=== PATIENT | male | born 2000 | race Caucasian/White ===

== ENCOUNTER 2025-01-16 10:51 | Outpatient (REF) | payer OTHER, SELFPAY ==
[2025-01-16 15:22] LABS: Alanine Aminotransferase 75 U/L (0-40); Albumin Level 4.8 g/dL (3.5-5.0); Alkaline Phosphatase 68 U/L (39-117); Anion Gap 10 (12-20); Aspartate Amino Transferase 37 U/L (5-37); Blood Urea Nitrogen 15 mg/dL (9-16); Calcium 9.2 mg/dL (8.4-10.2); Carbon Dioxide 26 mmol/L (22-29); Chloride 108 mmol/L (96-108); Cholesterol 157 mg/dL (<200); Estimated Glomerular Filt Rate > 60; HDL Cholesterol 46 mg/dL (>40); Potassium 3.9 mmol/L (3.3-5.1); Sodium 140 mmol/L (135-145); Total Protein 7.5 g/dL (6.5-8.0); Triglycerides 82 mg/dL (<150)
[2025-01-16 15:35] LABS: Folate 11.2 ng/mL (> or = 4.0); Vitamin B12 536 pg/mL (200-900)
[2025-01-16 15:43] LABS: Microalbum/Creatinine Ratio Ur 12.0 ug/mg cr (<30)
== END 2025-01-16 10:52 | disposition home or self-care (01) ==
LOC: HO.WFDLDS 10:51
PROVIDERS: PCP Nurse Practitioner Family; Visit Provider Nurse Practitioner Family
DX: Z00.00 Encounter for general adult medical examination without abnormal findings (principal); E66.01 Morbid (severe) obesity due to excess calories; J45.20 Mild intermittent asthma, uncomplicated; Z23 Encounter for immunization; Z83.3 Family history of diabetes mellitus; Z81.3 Family history of other psychoactive substance abuse and dependence; Z68.42 Body mass index [BMI] 45.0-49.9, adult; Z76.89 Persons encountering health services in other specified circumstances; Z79.899 Other long term (current) drug therapy
CPT/HCPCS: 36415; 80053; 80061; 82043; 82306; 82570; 82607; 82746; 83036; 84443; 90471; 90715; 96127

== ENCOUNTER 2025-01-16 10:51 | Outpatient (AMB) | payer OTHER, SELFPAY ==
--- NOTE | 2025-01-16 10:52 | A.OFFPC_ITS ---
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 Required: No Allergies No Known Allergies Allergy (Verified 01/16/25 11:18) Medication List - Last Reconciled 01/16/25 by MARCELINA Galarza No Known Home Meds Tobacco use date assessed: 01/16/25 Dental Screening Dental Screen Date: 01/16/25 Did you have a dental visit in the last 12 months?: Yes Did you have a dental problem in the last 6 months where you did not have access to dental care?: No Was dental information given to patient?: Patient has dentist HPI HPI Comments History of Present Illness Details 24 y/o M with obesity, asthma, allergies 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 no records Asthma: - The patient has a history of asthma si nce childhood. - In the past, the patient used a nebuli zer for treatment but is not currently on any inhalers. - The patient requests to be put back on medication to help with chest congestion. - The patient also reports symptoms sugg estive of seasonal allergies, such as sneezing, and believes the symptoms are a mix of asthma and allergies. - The patient has tried Claritin for all ergies without relief. Obesity: - The patient has a history of obesity w ith a current BMI of 46.3. - The patient notes that the whole famil y is large in stature. Past Medical History - Asthma since childhood. - Obesity with a BMI of 46.3. Past Surgical History - No history of surgery reported. Family History - Mother: Has thyroid issues and is a re covering drug addict. - Father: Has diabetes. - Brother: Has only one kidney since . - Sister: Has a history of an unspecifie d cancer and was a drug addict. Social History - The patient lives with their and is expecting their first daughter. 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 Health Maintenance - The patient requested and will receive a Tdap (tetanus) shot today in preparation for the of their daughter. - The patient declined a flu shot. - The patient agreed to baseline screeni ng labs, including for diabetes. Review of Systems - Respiratory: Reports feeling of conges tion in the chest. - HEENT: Reports sneezing, possibly rela davin to seasonal allergies. - Genitourinary: Reports normal urinatio n. - Musculoskeletal: Denies swelling in th e legs. Physical Exam General: Well developed, well nourished, in no acute distress. Appears stated age. Head: Normocephalic, atraumatic. Eyes: Pupils are equal, round and reactive to light and accommodation. Conjunctivae are clear. Scleras nonicteric bilat. Vision grossly normal. Ears: TMs clear AU, EACS WNL Nose: Patent, without discharge. Neck: No carotid bruit bilat. Supple, no adenopathy or thyromegaly. Breast: Edu on SBE Lungs: Clear to auscultation bilaterally. No rales, rhonchi or wheeze noted. Good air flow in all hamm. Heart: Regular rate and rhythm. No murmurs, click, rubs or gallops are noted. Abdomen: Bowel sounds present in all quadrants. The abdomen is soft, nontender, with no masses or organomegaly noted. No hernias are noted. : Deferred. Reviewed DIANA & recommendations Pulses: Peripheral pulses are equal and palpable bilaterally. Extremities: No clubbing, cyanosis nor edema is noted. Neurologic: Gait and station normal. Cranial Nerves 2-12 intact. Motor strength grossly symmetrical and intact. No sensory loss. Balance normal. Skin: No rashes, ulcers, or lesions noted. Turgor is good. Skin color is good. Hair and nails are without abnormalities. Psych: Normal eye contact, affect and mood appropriate, and normal interactions. Patient is alert and appropriate to context. Results - Baseline screening labs were ordered; results are pending. Medical Decision Making The patient is a 24-year-old individual presenting for a new patient visit to [facility] care. The primary concerns addressed were asthma and obesity, alongside routine health maintenance. For the patient's asthma, which has been present since childhood and is currently untreated, a two-part inhaler regimen was initiated. An albuterol inhaler was prescribed for acute symptom relief, and a daily maintenance inhaler, fluticasone, was started to control underlying inflammation, which may also address a potential allergic component. Given the patient's obesity (BMI 46.3) and a family history of diabetes, baseline screening labs were deemed appropriate to assess for metabolic conditions. In terms of preventative care, a Tdap vaccine was administered due to the upcoming of the patient's child, while the patient declined the influenza vaccine. The plan includes reviewing lab results, monitoring response to asthma treatment, and scheduling follow-up visits as needed, with a recommendation for an annual check-up. Plan 1. Asthma - Prescribed albuterol as a rescue inhal er for as-needed use, particularly before activities that may trigger symptoms. - Prescribed fluticasone inhaler, one in halation once daily, as a daily controller medication. - Instructed the patient to rinse their mouth after using the fluticasone inhaler to prevent bacterial buildup. - Advised the patient to send a message via the patient portal if breathing symptoms do not improve with the prescribed regimen. 2. Obesity And Health Maintenance - Ordered baseline screening labs to scr een for conditions such as diabetes, given the patient's BMI of 46.3 and family history. - Administered a Tdap vaccine today in a nticipation of the of the patient's daughter. - Patient declined the influenza vaccine . - Recommended annual follow-up, or as ne eded. - Instructed the patient on how to sign up for and use the [employer] patient portal for communication and accessing lab results. Patient Instructions - Take the fluticasone inhaler with one puff once a day, every day. - Be sure to rinse your mouth with water after using the fluticasone inhaler. - Use the albuterol inhaler as a rescue inhaler when you are having a hard time breathing. - You will receive a Tdap shot today. Yo ur arm may be sore for a few days, like a punch in the arm. - Please have your blood drawn at the la b here in the office before you leave today. - You will get an email to sign up for o [facility] patient portal. Please click the link in the email within 24 hours to create your account. - Use the message feature in the [facility] to contact the office with any questions or to request an appointment. Do not use the phones, as they go to a call center. - If your breathing problems do not get better with the new inhalers, please send us a message through the marlee. - It is recommended that you follow up o nce a year for a check-up, or sooner if needed. Consent The patient verbally consented to receiving the Tdap vaccination after being informed that soreness at the injection site is a common side effect. The patient also verbally agreed to undergo screening lab tests to establish a baseline for their health. Patient was informed and verbally consented to the use of an ambient scribe for clinic note documentation during this visit. An additional 15 minutes was spent addressing the problem(s) noted at todays visit. This includes time spent before the visit reviewing the chart, time spent during the visit, and time spent after the visit on documentation reviewing laboratory results, diagnostic imaging, medications, performing a medically necessary evaluation, counseling on diagnoses, care coordination, ordering appropriate tests, ordering appropriate medications, review of tests performed by other providers, reporting test results with the patient, communication with other healthcare providers. 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 1. Little interest or pleasure in doing things: not at all 2. Feeling down, depressed, or hopeless: not at all 3. Trouble falling or staying asleep, or sleeping too much: not at all 4. Feeling tired or having little energy: not at all 5. Poor appetite or overeating: not at all 6. Feeling bad about yourself - or that you are a failure or have let yourself or your family down: not at all 7. Trouble concentrating on things, such as reading the newspaper or watching television: not at all 8. Moving or speaking so slowly that other people could have noticed. Or the opposite - being so fidgety or restless that you have been moving around a lot more than usual: not at all 9. Thoughts that you would be better off or of hurting yourself in some way: not at all Total score: 0 Depression Screening Interpretation: Negative Depression Screening Done: Yes 54741 - PHQ-9 Billing: Yes Source: Developed by Drs. Miguel Lewis, Jacy Alejo, Jayson Shirley and colleagues, with an educational joan from [employer]. Thrive Questionnaire Date Thrive assessed: 01/16/25 I am a: Patient What is your living situation today?: I have a steady place to live Within the past 12 months, did the food you bought not last and you didn't have the money to get more?: I choose not to answer this question Within the past 12 months, did you worry whether your food would run out before you got money to buy more?: Never true Do you have trouble paying for medicines?: No Do you have trouble getting transportation to medical appointments?: No Do you have trouble paying your heating and electricity bill?: No Do you have trouble taking care of your child, family member or friend?: No Do you have trouble with day-to-day activities such as bathing, preparing meals, shopping, managing finances, etc.?: No Are you currently unemployed and looking for a job?: No Are you interested in more education?: No Please select the resources that you would like help with: None Currently or been in a relationship where the following occur: I choose not to answer THRIVE Score: 0 AUDIT C Alcohol Use Questionnaire (AUDIT-C) 1. How often do you have a drink containing alcohol?: Never 3. How often do you have six or more drinks on one occasion?: Never Total Score: 0 Score Reviewed/Action Taken: Yes JACQUE-7 AMB Questionnaire JACQUE-7 Date JACQUE - 7 assessed: 01/16/25 Feeling nervous, anxious, or on edge: 0 = Not at all Not being able to stop or control worryin = Not at all Worrying too much about different things: 0 = Not at all Trouble relaxin = Not at all Being so restless that it is hard to sit still: 0 = Not at all Becoming easily annoyed or irritable: 0 = Not at all Feeling afraid as if something awful might happen: 0 = Not at all Total JACQUE-7 score (0-4 normal; 5-9 mild; 10-14 moderate; 15-21 severe): 0 Source: Developed by Drs. Miguel Lewis, Jacy Alejo, Jayson Shirley and colleagues, with an educational joan from [employer]. JACQUE-7 Assessment Billing JACQUE-7 Assessment Tool: JACQUE-7 Assessment 31573 Physical exam (Primary Care) Vital Signs: Last Vital Signs Temp 97.2 F 01/16/25 10:57 Pulse 93 01/16/25 10:57 Resp 13 01/16/25 10:57 BP 132/72 01/16/25 10:57 Pulse Ox 97 01/16/25 10:57 Oxygen Delivery Method Room Air 01/16/25 10:57 BMI result Body Mass Index 46.3 BMI Assessment/Plan discussion: High BMI High, discussed plan: lifestyle Tobacco/Smoking Status: Tobacco use Status Tobacco use date assessed 01/16/25 01/16/25 10:59 Patient Tobacco Use Status Never used Tobacco 01/16/25 11:02 e-Cigarette/Vaping Use Never Used 01/16/25 11:02 PHQ-9: PHQ-9 Score PHQ-9: Total score 0 01/16/25 11:18 Depression Screening Interpretation: Negative Thrive Assessment: Date of Thrive Assessment Date Thrive assessed 01/16/25 01/16/25 10:59 Currently or been in a relationship where the following occur: I choose not to answer Immunizations Boostrix Tdap 2.5 Lf unit-8 mcg-5 Lf/0.5 mL intramuscular syringe Performing Provider: ERIC Galarza Performing Location: [facility] Family Medicine Administered by: Deny Silva MA on 01/16/25 11:35 Dose Route Admin Location Dispensed Lot Number Expiration Date NDC English Lecturer 0.5 mL IM Left Deltoid 0.5 mL [id number] 01/18/27 91954-505-72 [employer] Total Dispensed Waste 0.5 mL 0 % VIS Given Date VIS Provided VIS Publication Date 01/16/25 Single Vaccine 20 Eligibility Eligibility Date Funding Source Not [facility] Eligible 01/16/25 Private Coding Level of Care Code New Pt Level 2 (13335) New Pt Prev Care 18-39yr(63021 Diagnoses Encounter to establish care with new provider Z76.89 Obesity, morbid, BMI 40.0-49.9 E66.01 Laboratory exam ordered as part of routine general medical examination Z00.00 Mild intermittent asthma in adult without complication J45.20 Need for Tdap vaccination Z23 Influenza vaccination declined Z28.21 Family history of diabetes mellitus Z83.3 Family history of drug addiction Z81.3 Adult general medical exam Z00.00 Additional Codes JACQUE-7 Assessment Billing - JACQUE-7 Assessment Tool: JACQUE-7 Assessment 66408 ([id number]) PHQ-9 - 09938 - PHQ-9 Billing: Yes ([id number]) Assessment & Plan Assessment & Plan (1) Encounter to establish care with new provider: Code(s): Z76.89 - Persons encountering health services in other specified circumstances (2) Obesity, morbid, BMI 40.0-49.9: Code(s): E66.01 - Morbid (severe) obesity due to excess calories Category: Medical (3) Laboratory exam ordered as part of routine general medical examination: Code(s): Z00.00 - Encounter for general adult medical examination without abnormal findings Category: Medical (4) Mild intermittent asthma in adult without complication: Code(s): J45.20 - Mild intermittent asthma, uncomplicated Category: Medical (5) Need for Tdap vaccination: Onset Date: ~01/16/25 Code(s): Z23 - Encounter for immunization Category: Medical (6) Influenza vaccination declined: Onset Date: ~01/16/25 Code(s): Z28.21 - Immunization not carried out because of patient refusal Category: Medical (7) Family history of diabetes mellitus: Comment: dad Code(s): Z83.3 - Family history of diabetes mellitus Category: Medical (8) Family history of drug addiction: Comment: Mom & sister Code(s): Z81.3 - Family history of other psychoactive substance abuse and dependence Category: Medical (9) Adult general medical exam: Onset Date: ~01/16/25 Code(s): Z00.00 - Encounter for general adult medical examination without abnormal findings Category: Medical Plan . Orders: Orders Hemoglobin A1c Today E66.01 - Morbid (severe) obesity due to excess calories, Z00.00 - Encounter for general adult medical examination without abnormal findings Lipid Panel Today E66.01 - Morbid (severe) obesity due to excess calories, Z00.00 - Encounter for general adult medical examination without abnormal findings TSH reflex Free T4 Today E66.01 - Morbid (severe) obesity due to excess calories, Z00.00 - Encounter for general adult medical examination without abnormal findings TDaP Immunization Today Z23 - Encounter for immunization Comprehensive Met. Panel Today E66.01 - Morbid (severe) obesity due to excess calories, Z00.00 - Encounter for general adult medical examination without abnormal findings Microalbumin, Random (w Creat) Today E66.01 - Morbid (severe) obesity due to excess calories, Z00.00 - Encounter for general adult medical examination without abnormal findings Vitamin B12 and Folate Today E66.01 - Morbid (severe) obesity due to excess calories, Z00.00 - Encounter for general adult medical examination without abnormal findings Vitamin D 25-OH Total Today E66.01 - Morbid (severe) obesity due to excess calories, Z00.00 - Encounter for general adult medical examination without abnormal findings Medications: New fluticasone furoate 50 mcg/actuation 1 inh inhalation Q24H 30 ea 2RF albuterol sulfate 90 mcg/actuation 2 inhalations inhalation Q6H PRN 1 ea 0RF shortness of breath or wheezing Patient Instructions: Patient Instructions - Take the fluticasone inhaler with one puff once a day, every day. - Be sure to rinse your mouth with water after using the fluticasone inhaler. - Use the albuterol inhaler as a rescue inhaler when you are having a hard time breathing. - You will receive a Tdap shot today. Your arm may be sore for a few days, like a punch in the arm. - Please have your blood drawn at the lab here in the office before you leave today. - You will get an email to sign up for our [facility] patient portal. Please click the link in the email within 24 hours to create your account. - Use the message feature in the [facility] to contact the office with any questions or to request an appointment. Do not use the phones, as they go to a call center. - If your breathing problems do not get better with the new inhalers, please send us a message through the marlee. - It is recommended that you follow up once a year for a check-up, or sooner if needed. Walk-In Care (Urgent Care): We Make it Easy Walk-in for urgent medical issues such as: ? Seasonal Allergies ? Insect Bites ? Cough ? Diarrhea ? Acute Asthma Attacks ? Back, Knee or Joint Pain ? Ear Infection ? Fever without a Rash ? Headaches ? Nausea ? Evans Eye, Rash or Skin Irritation ? Sore Throat ? Sports Physicals ? Vomiting Most insurances are accepted. Patients do not need to be part of the [facility] to seek care at the walk-in clinic. Locations [address], [place] Open Tuesday through Tuesday 8am-5pm *Hours may vary due to staffing availability. To confirm Walk-In Care hours please call. [facility] , [place] [address] ? [phone] [facility] Walk-In Care in [place] provides services to ages 18 and over. Open Tuesday-Tuesday: 7 a.m. to 5 p.m. and Tuesday: 9 a.m. to 3 p.m.* *Hours may vary due to staffing availability. To confirm Walk-In Care hours in [place], please call [phone]. [address] [place] [address] ? [phone] [facility] Walk-In Care in [place] provides services to ages 12 and over. Open Tuesday-Tuesday: 8 a.m. to 5 p.m. Hours may vary due to staffing availability. To confirm Walk-In Care hours in [place], please call [phone]. LABORATORY SERVICES: [facility] Lab ? Primary Location [address] [facility] Tuesday through Tuesday 6:00 AM ? 5:00 PM Tuesday 7:00 AM ? 11:00 AM* [phone] The [facility] Lab is centrally located near the front entrance of the [facility] for easy outpatient access. Convenient parking is provided for outpatients. *Hours may vary due to staffing availability. To confirm Laboratory hours for any location, please call [phone]. Offsite Location For your convenience, we offer offsite laboratory draw stations at the following locations: [address] [place] [address] ? [facility] [address], [address] Tuesday through Tuesday 7:30 AM ? 1:00 PM* [phone] *Hours may vary due to staffing availability. To confirm Laboratory hours for any location, please call [phone]. [place] ? [address] Tuesday through Tuesday 6:00 AM ? 3:30 PM* Tuesday 6:30 AM ? 3 PM* [phone] *Hours may vary due to staffing availability. To confirm Laboratory hours for any location, please call [phone] [place] [address] Tuesday through Tuesday 7:30 AM ? 4:00 PM* [phone] *Hours may vary due to staffing availability. To confirm Laboratory hours for any location, please call [phone] [place] [address] Tuesday through 9:00 AM ? 4:00 PM* *Hours may vary due to staffing availability. To confirm Laboratory hours for any location, please call [phone]. Appointments are not necessary. Walk-ins are welcome. Like all the departments throughout the [facility], our Lab undergoes frequent reviews to ensure the quality and accuracy of test results, and our staff takes special pride in its status as a nationally accredited facility. Patient Portal: [facility] ONE PATIENT. ONE RECORD. BETTER CARE. [facility] has a fully integrated, cutting- edge mobile electronic health information system that has revolutionized the way we care for our patients and manage our organization. This system improves communication and coordination enabling us to provide safe, higher-quality care, and an overall positive experience for staff and patients. Our first priority, as always, is to deliver the highest quality care possible. The system is running in the background supporting that priority. This portal is for all [facility] services and practices. If you are experiencing any technical difficulties with enrolling or logging into the Patient Portal please complete the [facility] Patient Portal Technical Support Form. [facility] now offers a new secure on-line interactive tool for patients to review their health information ? ?Patient Portal. This interactive web portal will enable patients and their families to take an active role in their care by providing easy, secure access to their health information via the internet. The Patient Portal provides patients with instant access to their health information, including laboratory results, medications, allergies, demographic information, visit history, and more. In addition to managing their own care, parents and health care proxies with authorized consent will appreciate the ability to access the records of those individuals for whom they provide care. Please note: if you wish to gain access (Proxy) to another patient?s portal, you will be required to come to the Medical Records Department in person at [facility]. Both the patient giving proxy access and the proxy will need to provide photo identification and complete the appropriate authorization. The Patient Portal also allows track their appointments online. The [facility] Patient Portal also saves patients time by allowing them to submit updates to their demographic and contact information prior to their visits. Portal email notifications will also alert patients to any new activity on their portal, such as test results and new appointments. In order to initially enroll in the [facility] Patient Portal, you will need to enter some required information including the following: * your [facility] Medical Record number * your personal home email address * name * date of Please note: In order to enroll in the [facility] Patient Portal, we need to have your email address on file in your electronic medical record. ?The email address needs to be specific for one person (yourself) in order for your Portal enrollment to be successful. ?You can update your email address in person with our Registration staff when you are registering for a hospital visit. ?Otherwise, you will need to come to the Health Information Management (Medical Records) Department at [facility]. ?We are open from Tuesday ? Tuesday from 7:30 a.m. ? 4:30 p.m. ?You will be required to present a photo id. Once you have successfully enrolled in the Patient Portal, you will receive a one-time user id and password for the Portal, sent to your email address. ?This will allow you to log into the Patient Portal within 99 hrs and reset your own logon id and password, and define personal security questions. ?Once your permanent login and password have been set, you can log into the [facility] Patient Portal at any time via the blue button above or from the Portal Logon button on any page of the [facility] website. [facility] and [facility] encourage all of our patients to enroll in Patient Portal as it presents a valuable opportunity for patients and their families to actively participate in their care and stay healthy Welcome to [facility]. ?We look forward to working with you. Health screenings for men You should visit your health care provider regularly, even if you feel healthy. The purpose of these visits is to: Screen for medical issues Assess your risk for future medical problems Encourage a healthy lifestyle Update vaccinations and other preventive care services Help you get to know your provider in case of an illness Information Even if you feel fine, you should still see your provider for regular checkups. These visits can help you avoid problems in the future. For example, the only way to find out if you have high blood pressure is to have it checked regularly. High blood sugar and high cholesterol level also may not have any symptoms in the early stages. Simple blood tests can check for these conditions. There are specific times when you should see your provider or receive specific health screenings. The [place] Preventive Services Task Force publishes a list of recommended screenings. Below are screening guidelines for men ages 40 to 64. BLOOD PRESSURE SCREENING Have your blood pressure checked at least once every year. Watch for blood pressure screenings in your area. Ask your provider if you can stop in to have your blood pressure checked. Ask your provider if you need your blood pressure checked more often if: You have diabetes, heart disease, kidney problems, or are overweight or have certain other health conditions You have a first-degree relative with high blood pressure You are Black Your blood pressure top number is from 120 to 129 mm Hg, or the bottom number is from 70 to 79 mm Hg If the top number is 130 mm Hg or greater or the bottom number is 80 mm Hg or greater, this is considered stage 1 hypertension. Schedule an appointment with your provider to learn how you can lower your blood pressure. Effects of age on blood pressure CHOLESTEROL SCREENING Cholesterol screening should begin at age 35 for men with no known risk factors for coronary heart disease. Repeat cholesterol screening should take place: Every 5 years for men with normal cholesterol levels More often if changes occur in lifestyle (including weight gain and diet) More often if you have diabetes, heart disease, kidney problems, or certain other conditions COLORECTAL CANCER SCREENING If you are under age 45, talk to your provider about getting screened. You may need to be screened if you have a strong family history of colon cancer or polyps. Screening may also be considered if you have risk factors such as a history of inflammatory bowel disease or polyps. If you are age 45 to 75, you should be screened for colorectal cancer. There are several screening tests available: A stool-based fecal occult blood (gFOBT) or fecal immunochemical test (FIT) every year A stool sDNA test every 1 to 3 years Flexible sigmoidoscopy every 5 years or every 10 years with stool testing FIT done every year CT colonography (virtual colonoscopy) every 5 years Colonoscopy every 10 years You may need a colonoscopy more often if you have risk factors for colorectal cancer, such as: Ulcerative colitis A personal or family history of colorectal cancer A history of growths in your colon called adenomatous polyps DENTAL EXAM Go to the dentist once or twice every year for an exam and cleaning. Your dentist will evaluate if you have a need for more frequent visits. DIABETES SCREENING All adults who do not have risk factors for diabetes should be screened starting at age 35 and repeated every 3 years. If you have other risk factors for diabetes, such as a first degree relative with diabetes, overweight or obesity, high blood pressure, prediabetes, or a history of heart disease, you may be tested more often. If you are overweight and have other risk factors, such as high blood pressure and are planning to become , screening is recommended. EYE EXAM Have an eye exam every 2 to 4 years ages 40 to 54 and every 1 to 3 years ages 55 to 64. Your provider may recommend more frequent eye exams if you have vision problems or glaucoma risk. Have an eye exam that includes an examination of your retina (back of your eye) at least every year if you have diabetes. IMMUNIZATIONS Commonly needed vaccines include: Flu shot: get one every year COVID-19 vaccine: ask your provider what is best for you Tetanus-diphtheria and acellular pertussis (Tdap) vaccine: have as one of your tetanus-diphtheria vaccines if you did not receive it as an adolescent Tetanus-diphtheria: have a booster (or Tdap) every 10 years Varicella vaccine: receive 2 doses if you never had chickenpox or the varicella vaccine and were born in 1980 or after Hepatitis B vaccine: receive 2, 3, or 4 doses, depending on your exact circumstances, if you did not receive these as a child or adolescent, until age 59 Shingles (herpes zoster) vaccine: at or after age 50 Ask your provider if you should receive other immunizations, especially if you have certain medical conditions, such as diabetes or are at increased risk for some diseases such as pneumonia. INFECTIOUS DISEASE SCREENING Screening for hepatitis C: all adults ages 18 to 79 should get a one-time test for hepatitis C. Screening for human immunodeficiency virus (HIV): all people ages 15 to 65 should get a one-time test for HIV. Depending on your lifestyle and medical history, you may need to be screened for infections such as syphilis, chlamydia, and other infections. LUNG CANCER SCREENING You should have an annual screening for lung cancer with low-dose computed tomography (LDCT) if: You are age 50 to 80 years AND You have a 20 pack-year smoking history AND You currently smoke or have quit within the past 15 years OSTEOPOROSIS SCREENING If you are age 50 to 64 and have risk factors for osteoporosis, you should discuss screening with your provider. Risk factors can include long-term steroid use, low body weight, smoking, heavy alcohol use, having a fracture after age 50, or a family history of hip fracture or osteoporosis. Osteoporosis PHYSICAL EXAM All adults should visit their provider from time to time, even if they are healthy. The purpose of these visits is to: Screen for diseases Assess risk of future medical problems Encourage a healthy lifestyle Update vaccinations and other preventive care services Maintain a relationship with a provider in case of an illness Your height, weight, and body mass index (BMI) should be checked at every exam. During your exam, your provider may ask you about: Depression and anxiety Diet and exercise Alcohol and tobacco use Safety, such as use of seat belts and smoke detectors Your medicines and risk for interactions PROSTATE CANCER SCREENING If you're 55 through 69 years old, before having the test, talk to your provider about the pros and cons of having a PSA test. Ask about: Whether screening decreases your chance of dying from prostate cancer. Whether there is any harm from prostate cancer screening, such as side effects from testing or overtreatment of cancer when discovered. Whether you have a higher risk of prostate cancer than others. If you are age 55 or younger, screening is not generally recommended. You should talk with your provider about if you have a higher risk for prostate cancer. Risk factors include: Having a family history of prostate cancer (especially a brother or father) Being If you choose to be tested, the PSA blood test is repeated over time (yearly or less often), though the best frequency is not known. Prostate examinations are no longer routinely done on men with no symptoms. Prostate cancer SKIN EXAM Your provider may check your skin for signs of skin cancer, especially if you're at high risk. People at high risk include those who have had skin cancer before, have close relatives with skin cancer, or have a weakened immune system. TESTICULAR EXAM The US Preventive Services Task Force (USPSTF) now recommends against performing testicular self-exams. Doing testicular self-exams has been shown to have little to no benefit.
[2025-01-16 10:57] VITALS: BP 132/72; PULSE 93; RESP 13; TEMP 36.2; O2SAT 97; BMI 46.3
--- OUTSIDE RECORDS SUMMARY | 2025-01-16 13:18 | XMS_ITS | Clinical Summary ---
Author Organization [facility] Address [address] [place] [phone] Phone Care Team Providers Care Production Analyst Name Role Phone Constanza Lozoya DO Primary Care Provider [phone] Allergies No known active allergies Medications No known medications Active Problems Problem Noted Date Diagnosed Date Anxiety 10/05/2021 Assessment & Plan (07/29/2023 4:20 PM EDT): Doing okay without any medication. Morbid obesity with BMI of 4 0.0-44.9, adult ([facility] V24, [facility] V28) 10/05/2021 Assessment & Plan (07/29/2023 4:22 PM EDT): Discussed that pt should eat something in the morning to jump start his metabolism (preferable something with protein and low carbs) and eat something during the day at work. This may actually help him lose weight. He is agreeable. Assessment & Plan (10/05/2021 3:45 PM EDT): Increase exercise. Cut carbs, total calories and portion sizes. Immunizations Immunization Administration Dates Next Due Meningococcal MCV4P 11/10/2017 Pfizer SARS-CoV-2 COVID-19, mRNA, LNP-S, preservative free 10/07/2020,09/14/2020 Family History Medical History Relation Name Comments Diabetes Father Thyroid disease Mother Relation Name Status Comments Brother Alive Father Alive Mother Alive Sister Alive Social History Tobacco Use Types Packs/Day Years Used Date Smoking Tobacco: Never Smokeless Tobacco: Never Alcohol Use Standard Drinks/Week Comments Yes 0 (1 standard drink = 0.6 oz pur e alcohol) occ Housing Instability Answer Date Recorde d Are you worried that in the next 2 months you may not have stable housing? No 07/29/2023 Food Access & Nutrition Answer Date Rec orded Do you have access to a vari ety of food including fruits and vegetables? Yes 07/29/2023 Access to Healthcare Answer Date Record ed Within the last 3 months, ho w many times did you visit the emergency department for your medical care? 0 07/29/2023 Financial Risk Answer Date Recorded How hard is it for you to pa y for the very basics like food, housing, medical care, and air conditioning / heating? Somewhat hard 07/29/2023 Transportation Answer Date Recorded Has the lack of transportati on kept you from meetings, work, or from getting things needed for daily living? No Has the lack of transportati on kept you from medical appointments or from getting medications? No 07/29/2023 Social Isolation Answer Date Recorded How often do you feel lonely or isolated from th ose around you? Rarely 07/29/2023 Food Risk Answer Date Recorded Within the past 12 months we worried whether our food would run out before we got money to buy more. Never true 07/29/2023 Within the past 12 months th e food we bought just didn't last and we didn't have money to get more. Never true 07/29/2023 [facility] Answer Date Re corded How often do you need to hav e someone help you when you read instructions, pamphlets, or other written material from your doctor or pharmacy? Never 07/29/2023 Caregiver: How often do you need to have someone help you when you read instructions, pamphlets, or other written material from your doctor or pharmacy? Never 07/29/2023 Sex and Gender Information Value Date Recorded Sex Assigned at Male 07/29/2023 3:27 PM EDT Legal Sex Male 7:27 PM EDT Gender Identity Male 07/29/2023 3:27 PM EDT Sexual Orientation Straight 07/29/2023 3: 27 PM EDT Obstetrics History Last Filed Vital Signs Vital Sign Reading Time Taken Comments Blood Pressure 110/70 07/29/2023 3:18 PM EDT Pulse 84 07/29/2023 3:18 PM EDT Temperature 36.5 C (97.7 F) 07/29/2023 3:18 PM EDT Respiratory Rate 16 10/05/2021 3:16 PM EDT Oxygen Saturation 97% 07/29/2023 3:18 PM EDT Inhaled Oxygen Concentration - - Weight 167 kg (368 lb) 07/29/2023 3:18 PM EDT Height 195.6 cm (6' 5 ) 07/29/2023 3:18 PM EDT Body Mass Index 43.64 07/29/2023 3:18 PM EDT Plan of Treatment Health Maintenance Due Date Last Done Comments HPV Vaccines (1 - Male 3-dose series) 06/18/2014 HIV Screening 04/01/2019 Hepatitis C Screening 04/01/2019 DTaP,Tdap,and Td Vaccines (7 - Td or Tdap) 06/07/2021 06/08/2011, 07/27/2004, 01/02/2001, Additional history exists Depression Screening 02/22/2024 07/29/2023 Social Influencers of Health Screening 07/28/2024 07/29/2023 COVID-19 Vaccine (3 - season) 2024 10/07/2020, 09/14/2020 Influenza Vaccine (#1) 2024 11/13/2009 Cholesterol Screening (Lipid Panel) 07/28/2028 07/29/2023, 10/19/2021 RSV Immunization Adult Patients (1 - 1-dose 75+ series) 06/18/2074 Pneumococcal Vaccine: Pediatrics (0 to 5 Years) and At-Risk Patients (6 to 49 Years) Aged Out 1999, 1999 No longer eligibl e based on patient's age to complete this topic HIB Vaccines Completed 10/10/2000, 06/1999, 1999 Hepatitis B Vaccines Completed 10/10/2000, 09/28/2000, 1999, Additional history exists IPV Vaccines Completed 07/27/2004, 09/22, 1999, Additional history exists Varicella Vaccines Completed 04/16/2008, 01/02/2001 Hepatitis A Vaccines Completed 11/13/2009, 04/16/19 09 MMR Vaccines Completed 10/10/2010, 09/21, 10/10/2000 Meningococcal ACWY Vaccine Completed 11/10/2017, Meningococcal B Vaccine Aged Out No l onger eligible based on patient's age to complete this topic RSV Immunization Patients Under 20 months Aged Out No longer eligible based on patient's age to complete this topic Procedures Procedure Name Priority Date/Time Associated Diagnosis Comments LIPID PANEL Routine 07/29/2023 3:53 PM EDT Routine adult health maintenance from Last 3 Months or Most Recently Relevant to Health Maintenance Results * (ABNORMAL) Lipid panel (07/29/2023 3:53 PM EDT) Cholesterol 153 <200 mg/dL LAB CHEMISTRY METHOD 07/29/2023 11:00 PM EDT [facility] Triglycerides 99 <150 mg/dL LAB CHEMISTRY METHOD 07/29/2023 11:00 PM EDT [facility] HDL 42(L) >59 mg/dL LAB CHEMISTRY METHOD 07/29/2023 11:00 PM EDT [facility] Comment: <35 mg/dl is the cut-point for increased Coronary Heart Disease (CHD) risk. LDL Calculated 91 0 - 99 mg/dL LAB CHEMISTRY METHOD 07/29/2023 11:00 PM EDT [facility] VLDL Cholesterol Augustin 19.8 <=30 mg/dL LAB CHEMISTRY METHOD 07/29/2023 11:00 PM T [facility] Blood Venous blood specimen / Unknown Venipuncture / Unknown 07/29/2023 3:53 PM EDT 07/29/2023 3:53 PM EDT us Constanza Lozoya DO LAB BLOOD ORDERABLES Final Res ult [facility] [address] [place] [address] from Last 3 Months or Most Recently Relevant to Health Maintenance Insurance [employer] [employer] Care Teams Production Analyst Relationship Specialty Start Date End Date Constanza Lozoya DO [address] [place] [address] PCP - General Internal Medicine 10/07/19
== END 2025-01-16 11:39 | disposition home or self-care (01) ==
LOC: HO.HMCFM 10:52
PROVIDERS: PCP Nurse Practitioner Family; Visit Provider Nurse Practitioner Family
DX: Z00.00 Encounter for general adult medical examination without abnormal findings (principal); E66.01 Morbid (severe) obesity due to excess calories; Z68.42 Body mass index [BMI] 45.0-49.9, adult; J45.20 Mild intermittent asthma, uncomplicated; Z23 Encounter for immunization; Z76.89 Persons encountering health services in other specified circumstances; Z83.3 Family history of diabetes mellitus; Z81.3 Family history of other psychoactive substance abuse and dependence